=== PATIENT | female | born 1980 | race Caucasian/White ===

== ENCOUNTER 2018-04-24 09:11 | Inpatient (IN) | payer BC, OTHER ==
[2018-04-24] VITALS (39 sets, daily range): BP systolic 112–148; BP diastolic 70–102
[~2018-04-24] VITALS: Ht 152.4 cm; Wt 69.6 kg
[~2018-04-24 09:11] MED LIST: APIDRA100 UNIT/2; TRAMADOL HCL E100 MG
[2018-04-24] MEDS ORDERED: SODIUM CHLORIDE 0.9% 1000ML 1,000 ML IV STA ×2 (09:44)
[2018-04-24] MEDS ORDERED: MORPHINE SULFATE 2 MG/ML SYR IV NR (09:44)
[2018-04-24] MEDS ORDERED: INSULIN REGULAR, HUMAN 100 UNIT/1 ML 3ML VIAL IV NR (09:45)
[2018-04-24] MEDS ORDERED: PROMETHAZINE 25MG/ NS 50ML (IV) IV NR (09:45)
[2018-04-24 09:57] LABS: BASOPHILS # (AUTO) 0.1 (0.0-0.1); BASOPHILS % 0.5 % (0.0-1.0); EOSINOPHILS % 0.1 % (0.0-6.0); HEMATOCRIT 48.6 % (34.2-44.1); HEMOGLOBIN 17.3 g/dL (12.0-16.0); LYMPHOCYTES # (AUTO) 1.9 (1.0-3.2); MEAN CORPUSCULAR HGB CONC 35.6 g/dL (31-35); MEAN CORPUSCULAR VOLUME 81.4 fL (81-99); MONOCYTES # (AUTO) 0.6 (0.2-0.8); MONOCYTES % 3.9 % (4.4-11.3); NEUTROPHILS # (AUTO) 12.9 (2.1-6.9); NEUTROPHILS % 83.1 % (38.7-80.0); PLATELET COUNT 393 x10e3/uL (140-360); RED BLOOD COUNT 5.97 x10e6/uL (3.6-5.1); RED CELL DISTRIBUTION WIDTH 13.8 % (11.7-14.4)
[2018-04-24 10:00] LABS: INR 0.93; PROTHROMBIN TIME 13.3 seconds (11.9-14.5)
[2018-04-24] MEDS ORDERED: PANTOPRAZOLE 40 MG 10ML VIAL IV NR (10:00)
[2018-04-24 10:03] LABS: CLARITY,URINE CLEAR (CLEAR); COLOR,URINE YELLOW (YELLOW); LEUKOCYTE ESTERASE ,URINE NEGATIVE (NEGATIVE); NITRITE,URINE NEGATIVE (NEGATIVE); PROTEIN,URINE DIPSTICK 1+ (NEGATIVE)
[2018-04-24 10:04] LABS: BILIRUBIN,URINE NEGATIVE (NEGATIVE); KETONES,URINE 3+ (NEGATIVE); URINE UROBILINOGEN 0.2 mg/dL (0.2 - 1)
[2018-04-24 10:11] LABS: BACTERIA,URINE FEW /HPF; EPITHELIAL CELLS,URINE FEW /LPF; MUCUS,URINE FEW (RARE); RBC,URINE 0-5 /HPF (0-5); WBC,URINE (MAN) 0-5 /HPF (0-5)
[2018-04-24 10:12] LABS: ALANINE AMINOTRANSFERASE 19 IU/L (0-55); ALBUMIN 4.7 g/dL (3.5-5.0); ALBUMIN/GLOBULIN RATIO 1.5 (0.8-2.0); ALKALINE PHOSPHATASE 87 IU/L (40-150); AMYLASE 51 U/L (25-125); ANION GAP 30.7 mmol/L (8-16); BLOOD UREA NITROGEN 12 mg/dL (7-26); BUN/CREATININE RATIO 13 (6-25); CALCIUM 10.2 mg/dL (8.4-10.2); CARBON DIOXIDE 14 mmol/L (22-29); CHLORIDE 96 mmol/L (98-107); CREATINE KINASE 38 IU/L (29-168); CREATININE, SERUM 0.89 mg/dL (0.57-1.11); EST GLOMERULAR FILTRATION RATE > 60 ML/MIN (60-); LIPASE 26 U/L (8-78); POTASSIUM 3.7 mmol/L (3.5-5.1); SODIUM 137 mmol/L (136-145)
[2018-04-24 10:15] LABS: GLUCOSE 479 mg/dL (74-118)
[2018-04-24 10:30] LABS: ABG HCO3 12 mmol/L (23-28); ABG PCO2 24 mmHg (41-51); ABG PH 7.29 (7.31-7.41); ABG PO2 109 mmHg (80-105)
[2018-04-24] MEDS ORDERED: DEXTROSE 5%/0.45% SOD CHL 1,000 ML IV SCH ×2 (10:42→11:30)
[2018-04-24] MEDS ORDERED: SODIUM CHLORIDE 0.9% 1000ML 1,000 ML IV SCH (10:42)
[2018-04-24] MEDS ORDERED: MAGNESIUM SULF 1GRAM/DEXTROSE 100 ML IV PRN (10:45)
[2018-04-24] MEDS ORDERED: POTASSIUM CHLORIDE 20MEQ/100ML 200 ML IV PRN (10:45)
[2018-04-24] MEDS ORDERED: INSULIN DETEMIR 100 UNIT/ML PEN SQ PRN ×2 (10:45→11:30)
[2018-04-24] MEDS ORDERED: INSULIN REGULAR, HUMAN 3ML VL 100 UNIT in SODIUM CHLORIDE 0.9% 99 ML IV SCH ×2 (10:45)
--- NOTE | 2018-04-24 11:07 | Diagnostic Imaging Report ---
EXAM: XR CHEST 1 VIEW DATE: 04/24/2018 9:44 AM INDICATION: Pain COMPARISON: None FINDINGS: Lines and Tubes: None Heart and Mediastinum: No acute cardiomediastinal findings. Lungs and Pleura: No significant pleural effusion, pneumothorax, or focal consolidation. Bones and Soft Tissues: No acute findings. IMPRESSION: 1. No acute cardiopulmonary findings. Signed by: Dr. Mariano Bryant MD on 04/24/2018 11:04 AM
--- NOTE | 2018-04-24 11:11 | Diagnostic Imaging Report ---
EXAM: CT Abdomen and Pelvis WITH contrast INDICATION: Pain COMPARISON: None. TECHNIQUE: Abdomen and Pelvis was scanned utilizing a multidetector helical scanner after administration of IV contrast. Coronal and sagittal reformations were obtained. IV CONTRAST: 100 mL Isovue-370 COMPLICATIONS: None RADIATION DOSE: Total DLP:657 mGy*cm Estimated effective dose: (DLP x 0.015 x size factor) mSv CTDIvol has been reviewed. It is below the limits set by the Radiation Protocol Committee (RPC). Appropriate CT dose reduction techniques were utilized. FINDINGS: Abdomen: Lung Bases: No acute findings. Solid Organs: Liver, adrenals, kidneys, spleen, and pancreas unremarkable. Upper GI Tract: No small bowel obstructive change. Vascularity: Mild vascular calcifications. No aneurysm. Lymph Nodes: No suspicious adenopathy. Other: None. Pelvis: Bladder: Unremarkable. Other: Small amount of abdominal free fluid statistically leaking/ruptured ovarian cyst given age. Ultrasound could be obtained for further evaluation if indicated. Colon: No acute findings. Appendix not inflamed. Bones: No acute findings. IMPRESSION: 1. No distinct acute abnormality abdomen/pelvis. 2. See above for full details. Signed by: Dr. Mariano Bryant MD on 04/24/2018 11:07 AM
[2018-04-24] MEDS ORDERED: SODIUM CHLORIDE 0.9% 50ML 50 ML ONE ×2 (11:14→20:53)
[2018-04-24] MEDS ORDERED: IOPAMIDOL 370 MG/ML 200 ML INFUS..BTL INJ ONE (11:14)
[2018-04-24] MEDS ORDERED: LISINOPRIL10 MG PO (11:22)
[2018-04-24] MEDS ORDERED: ALPRAZOLAM1 MG PO (11:22)
[2018-04-24] MEDS ORDERED: PROZAC20 MG PO (11:22)
[2018-04-24] MEDS ORDERED: TIZANIDINE HCL4 MG PO (11:22)
[2018-04-24] MEDS ORDERED: AMBIEN10 MG PO (11:22)
[2018-04-24] MEDS ORDERED: METOPROLOL TART50 MG PEG (11:22)
[2018-04-24] MEDS ORDERED: INSULIN REGULAR, HUMAN 3ML VL 100 UNIT in SODIUM CHLORIDE 0.45% 100 ML 100 ML IV SCH ×2 (11:27)
[2018-04-24] MEDS ORDERED: DEXTROSE 50% SYRINGE 50 ML IV PRN ×3 (11:30→15:45)
[2018-04-24] MEDS ORDERED: MORPHINE SULFATE INJ 4 MG/ML INJ IV NR (11:45)
[2018-04-24] MEDS ORDERED: SODIUM CHLORIDE 0.9% 1000ML 2,000 ML IV SCH (11:45)
[2018-04-24] MEDS ORDERED: LORAZEPAM INJ 2 MG/ML VIAL IV NR (11:45)
[2018-04-24] MEDS ORDERED: SODIUM CHLORIDE 0.9% 1000ML 1,000 ML ONE (11:47)
[2018-04-24] MEDS ORDERED: PROMETHAZINE HCL (IM) 25 MG/ML VIAL IV PRN (12:00)
[2018-04-24] MEDS: SODIUM CHLORIDE 0.9% 1000ML 1,000 ML IV SCH ×3 (12:05→18:21)
--- OUTSIDE RECORDS SUMMARY | 2018-04-24 12:14 | XMS REPORT ---
[facility] Address Unknown Phone Unavailable Care Team Providers Care Software Systems Engineer Name Role Phone Hannah FORRESTER Unavailable Unavailable Payers Payer Name Policy Type Policy Number Effective Date Expiration Date Problems This patient has no known problems. Allergies, Adverse Reactions, Alerts Allergy Name Allergy Type Status Severity Reaction(s) Onset Date Inactive Date Treating Clinician Comments No Known Allergies DA Active U 2017-07-21 00:00:00 Medications This patient has no known medications. Results Test Description Test Time Test Comments Text Results Atomic Results Result Comments CT ABDOMEN/PELVIS W 2018-04-24 11:04:00 [id number] [place], [place] [address] Patient Name: JOHANNA ROMERO MR #: [id number] : 1980 Age/Sex: 37/F Req #: [id number] Adm Physician: Ordered by: SHIRA FORRESTER MD Report #: [id number] Location: ER Room/Bed: Procedure: [id number] CT/CT ABDOMEN/PELVIS W Exam Date: 04/24/18 Exam Time: 1035 REPORT STATUS: Signed EXAM: CT Abdomen and Pelvis WITH contrast IND ICATION: Pain COMPARISON: None. TECHNIQUE: Abdomen and Pelvis was scanned utilizing a multidetector helical scanner after administration of IV contrast. Coronal and sagittal reformations were obtained. IV CONTRAST: 100 mL Isovue-370 COMPLICATIONS: None RADIATION DOSE: Total DLP:657 mGy*cm Estimated effective dose: (DLP x 0.015 x size factor) mSv CTDIvol has been reviewed. It is below the limits set by the Radiation Protocol Committee (RPC). Appropriate CT dose reduction techniques were utilized. FINDINGS: Abdomen: Lung Bases: No acute findings. Solid Organs: Liver, adrenals, kidneys, spleen, and pancreas unremarkable. Upper GI Tract: No small bowel obstructive change. Vascularity: Mild vascular calcifications. No aneurysm. Lymph Nodes: No suspicious adenopathy. Other: None. Pelvis: Bladder: Unremarkable. Other: Small amount of abdominal free fluid statistically leaking/ruptured ovarian cyst given age. Ultrasound could be obtained for further evaluation if indicated. Colon: No acute findings. Appendix not inflamed. Bones: No acute findings. IMPRESSION: 1. No distinct acute abnormality abdomen/pelvis. 2. See above for full details. Signed by: Dr. Mariano Bryant MD on 04/24/2018 11:07 AM Dictated By: MARIANO BRYANT MD 110 Transcribed By: MELCHOR on 04/24/18 110 COPY TO: SHIRA FORRESTER MD CHEST SINGLE (PORTABLE) 2018-04-24 11:03:00 [address] [address] Patient Name: JOHANNA ROMERO MR #: [id number] : 1980 Age/Sex: 37/F Req #: [id number] Adm Physician: Ordered by: SHIRA FORRESTER MD Report #: [id number] Location: ER Room/Bed: Procedure: [id number] DX/CHEST SINGLE (PORTABLE) Exam Date: 04/24/18 Exam Time: 1045 REPORT STATUS: Signed EXAM: XR CHEST 1 VIEW DATE: 04/24/2018 9:44 AM INDICATION: Pain COMPARISON: None FINDINGS: Lines and Tubes: None Heart and Mediastinum: No acute cardiomediastinal findings. Lungs and Pleura: No significant pleural effusion, pneumothorax, or focal consolidation. Bones and Soft Tissues: No acute findings. IMPRESSION: 1. No acute cardiopulmonary findings. Signed by: Dr. Mariano Bryant MD on 04/24/2018 11:04 AM Dictated By: MARIANO BRYANT MD 110 Transcribed By: MELCHOR on 04/24/18 1105 COPY TO: SHIRA FORRESTER MD
[2018-04-24] MEDS ORDERED: LABETALOL HCL 5 MG/ML 20ML VIAL IV NR (12:38)
[2018-04-24] MEDS ORDERED: LABETALOL HCL 20 ML ONE (12:42)
[2018-04-24] MEDS ORDERED: LABETALOL HCL 5 MG/ML 20ML VIAL IV PRN (12:45)
[2018-04-24] MEDS ORDERED: ZOLPIDEM TARTRATE 10 MG TAB PO PRN (14:15)
[2018-04-24] MEDS ORDERED: PANTOPRAZOLE 40 MG 10ML VIAL IV ONE (14:45)
[2018-04-24] MEDS ORDERED: INSULIN REGULAR, HUMAN 3ML VL 100 UNIT in SODIUM CHLORIDE 0.45% 100 ML 99 ML IV SCH ×2 (15:39)
[2018-04-24] MEDS ORDERED: INSULIN REGULAR, HUMAN 3ML VL 300 UNIT in SODIUM CHLORIDE 0.45% 100 ML 300 ML IV SCH ×2 (15:39)
[2018-04-24] MEDS: ALPRAZOLAM 1 MG TAB PO SCH ×2 (16:30→21:00)
[2018-04-24 16:42] LABS: FREE T4 (FREE THYROXINE) 1.63 ng/dL (0.9-1.8); THYROID STIMULATING HORMONE 0.515 uIU/mL (0.350-4.940)
--- NOTE | 2018-04-24 16:45 | History and Physical ---
REASON FOR ADMISSION: Ms. Yu is an unfortunate 37-year-old woman with type 1 juvenile-onset diabetes, who presents to the emergency room with a complaint of nausea and vomiting since April 22. HISTORY OF PRESENT ILLNESS: Patient reports she has checked some blood sugars at home, but focus is on the fact that it was 400 to 500 when she presented to the emergency room today. She reports with nausea and repeat vomiting, her chest and oropharynx are uncomfortable. PAST MEDICAL HISTORY: Significant for type 1 juvenile-onset diabetes, insulin-dependent, onset about age 15. She has had hospitalizations at [facility] in November of 2016 for problems of diabetic gastroparesis, vomiting, and she reports she has had a Botox injection into her stomach wall by Dr. Quinteros, which improved this problem. She was also hospitalized at [facility] on July 21, 2017, for nausea and vomiting which she recalls as pneumonia. HOME MEDICATIONS: Include insulin, metoprolol, Zanaflex, atorvastatin, aspirin, Ambien, and tramadol. SOCIAL HISTORY: She does not smoke or drink. REVIEW OF SYSTEMS CARDIAC: Negative. NEURO: She has some diagnosis of neuropathy. PHYSICAL EXAMINATION GENERAL: At this time shows pleasant white woman who is anxious, but otherwise comfortable. HEAD, EYES, EARS, NOSE, AND THROAT: Unremarkable. NECK: No jugular venous distention. THORAX: Heart sounds S1, S2 are equal. Very faint 1/6 systolic murmur. LUNGS: Clear. ABDOMEN: Protuberant. Nontender. Hypoactive bowel sounds. EXTREMITIES: No cyanosis, clubbing, or edema. IMAGING: EKG shows sinus tachycardia at 103, otherwise unremarkable. LABORATORY DATA: Initial laboratory studies show a glucose of 479, BUN 12, creatinine 0.89, hemoglobin 17.3, white count 15.4, bilirubin 2.2. ASSESSMENT 1. Diabetic ketoacidosis. 2. Dehydration. 3. History of diabetic gastroparesis. PLAN: We will hydrate and give intravenous insulin and intravenous Protonix, and we will monitor her closely. Further management based on clinical course. Job#: [id number] LPA cc:DR. ZOILA COTTON
[2018-04-24] MEDS: TIZANIDINE HCL 4 MG TAB PO SCH (18:00)
[2018-04-24] MEDS: D5.45%NS/KCL 20MEQ 1,000 ML IV SCH (18:18)
[2018-04-24] MEDS: METOPROLOL TARTRATE 50 MG TAB PEG SCH (18:20)
[2018-04-24] MEDS: LISINOPRIL 20 MG TAB PO SCH (18:21)
[2018-04-24 20:02] LABS: ANION GAP 14.5 mmol/L (8-16); BLOOD UREA NITROGEN 9 mg/dL (7-26); BUN/CREATININE RATIO 13 (6-25); CALCIUM 8.5 mg/dL (8.4-10.2); CARBON DIOXIDE 19 mmol/L (22-29); CHLORIDE 107 mmol/L (98-107); CREATININE, SERUM 0.67 mg/dL (0.57-1.11); EST GLOMERULAR FILTRATION RATE > 60 ML/MIN (60-); GLUCOSE 222 mg/dL (74-118); MAGNESIUM 1.6 MG/DL (1.3-2.1); POTASSIUM 3.5 mmol/L (3.5-5.1); SODIUM 137 mmol/L (136-145)
[2018-04-24 20:10] LABS: CREATINE KINASE MB 1.9 ng/mL (0-5.0)
[2018-04-24] MEDS: MORPHINE SULFATE 2 MG/ML SYR IV PRN (20:55)
[2018-04-25] VITALS (43 sets, daily range): BP systolic 82–184; BP diastolic 40–125
[2018-04-25] MEDS: D5.45%NS/KCL 20MEQ 1,000 ML IV SCH ×4 (00:01→21:10)
--- NOTE | 2018-04-25 01:02 | Consultation ---
DATE OF CONSULTATION: April 24, 2018 ENDOCRINE CONSULTATION PATIENT OF: Dr. Tobi Arizmendi. Thank you very much for referring this patient. HISTORY OF PRESENT ILLNESS: This is a 37-year-old white female who is known to me from her previous hospital admissions. Patient is a known case of diabetes mellitus since she was age 13. She has multiple complications from diabetes including severe diabetic sensorimotor neuropathy and gastroparesis. This time, the patient came to the hospital with history of nausea, vomiting, and abdominal pain. On further evaluation, blood sugar was 479, anion gap was 30.7 and the CO2 was 14. Patient was admitted the hospital for further evaluation and management of diabetic ketoacidosis. Patient was on insulin pump in the past. She is presently on 16 of Levemir at bedtime and Apidra about 8 to 10 with each meal depending upon the blood sugars. She also has a history of gastroparesis and hypertension. Her other routine medications include labetalol, metoprolol, and lisinopril 20 mg once daily. PHYSICAL EXAMINATION GENERAL: Today, the patient is alert, awake, and a little bit apprehensive. She looks slightly dehydrated. VITAL SIGNS: Heart rate is 100. Blood pressure is 130/80. HEENT: Examination essentially unremarkable. NECK: Thyroid is palpable. Clinically, she is near euthyroid. CHEST: Bilateral vesicular breathing. She has mild bronchospasm. CARDIOVASCULAR: First and second heart sounds. There is no third or fourth heart sound. Ejection sound grade 2/6. EXTREMITIES: Patient has evidence of diabetic sensory neuropathy in both lower extremities. CLINICAL IMPRESSION 1. Diabetes mellitus type 1. 2. Diabetic ketoacidosis. 3. History of gastroparesis. 4. Hypertension. PLAN: At this time is to start her on IV fluids, insulin drip, and monitor her blood sugars closely. We will also do a thyroid function test and a hemoglobin A1c. Thanks for referring this patient. I will be following this patient with you. Job#: [id number] MONAE
[2018-04-25 04:29] LABS: BASOPHILS % 0.4 % (0.0-1.0); EOSINOPHILS # (AUTO) 0.1 (0.0-0.4); EOSINOPHILS % 0.8 % (0.0-6.0); HEMATOCRIT 39.3 % (34.2-44.1); HEMOGLOBIN 13.5 g/dL (12.0-16.0); LYMPHOCYTES % 31.2 % (18.0-39.1); MEAN CORPUSCULAR HEMOGLOBIN 28.7 pg (28-32); MEAN CORPUSCULAR HGB CONC 34.4 g/dL (31-35); MEAN CORPUSCULAR VOLUME 83.4 fL (81-99); MONOCYTES # (AUTO) 0.9 (0.2-0.8); MONOCYTES % 9.6 % (4.4-11.3); NEUTROPHILS # (AUTO) 5.6 (2.1-6.9); NEUTROPHILS % 57.7 % (38.7-80.0); PLATELET COUNT 228 x10e3/uL (140-360); RED BLOOD COUNT 4.71 x10e6/uL (3.6-5.1); RED CELL DISTRIBUTION WIDTH 14.3 % (11.7-14.4)
[2018-04-25 04:44] LABS: ANION GAP 13.3 mmol/L (8-16); BLOOD UREA NITROGEN 6 mg/dL (7-26); BUN/CREATININE RATIO 10 (6-25); CALCIUM 8.4 mg/dL (8.4-10.2); CARBON DIOXIDE 20 mmol/L (22-29); CHLORIDE 108 mmol/L (98-107); CREATININE, SERUM 0.62 mg/dL (0.57-1.11); EST GLOMERULAR FILTRATION RATE > 60 ML/MIN (60-); GLUCOSE 162 mg/dL (74-118); MAGNESIUM 1.8 MG/DL (1.3-2.1); POTASSIUM 3.3 mmol/L (3.5-5.1); SODIUM 138 mmol/L (136-145)
[2018-04-25 05:19] LABS: CREATINE KINASE MB 1.1 ng/mL (0-5.0)
[2018-04-25] MEDS: MORPHINE SULFATE 2 MG/ML SYR IV PRN ×4 (05:55→21:43)
[2018-04-25] MEDS: TIZANIDINE HCL 4 MG TAB PO SCH ×4 (06:00→17:37)
[2018-04-25] MEDS: LISINOPRIL 20 MG TAB PO SCH ×2 (08:03→17:00)
[2018-04-25] MEDS: METOPROLOL TARTRATE 50 MG TAB PEG SCH ×2 (08:03→17:00)
[2018-04-25] MEDS: FLUOXETINE HCL 20 MG CAP PO SCH (08:03)
[2018-04-25] MEDS: ALPRAZOLAM 1 MG TAB PO SCH ×3 (08:04→21:10)
[2018-04-25] MEDS: INSULIN LISPRO 100 UNIT/1 ML 3ML VIAL SQ SCH ×3 (15:46→21:30)
[2018-04-25] MEDS ORDERED: INSULIN DETEMIR 100 UNIT/ML PEN SQ SCH (21:00)
[2018-04-25] MEDS: ONDANSETRON HCL INJ 2 MG/ML VIAL IV PRN (21:43)
[2018-04-26 00:32] VITALS: BP 117/61
[2018-04-26 05:31] VITALS: BP 126/66
[2018-04-26] MEDS: ONDANSETRON HCL INJ 2 MG/ML VIAL IV PRN (06:25)
[2018-04-26] MEDS: MORPHINE SULFATE 2 MG/ML SYR IV PRN ×2 (06:25→10:14)
[2018-04-26] MEDS: TIZANIDINE HCL 4 MG TAB PO SCH ×3 (06:25→12:00)
[2018-04-26 08:00] VITALS: BP 126/70
[2018-04-26] MEDS: INSULIN LISPRO 100 UNIT/1 ML 3ML VIAL SQ SCH ×6 (08:00→16:41)
[2018-04-26] MEDS: LISINOPRIL 20 MG TAB PO SCH (09:00)
[2018-04-26] MEDS: ALPRAZOLAM 1 MG TAB PO SCH ×2 (09:00→16:00)
[2018-04-26] MEDS: METOPROLOL TARTRATE 50 MG TAB PEG SCH (09:00)
[2018-04-26] MEDS: FLUOXETINE HCL 20 MG CAP PO SCH (09:00)
[2018-04-26 12:00] VITALS: BP 130/91
[2018-04-26] MEDS ORDERED: LANTUS 3ML100 UNITS/ SQ (16:27)
[2018-04-26] MEDS ORDERED: HUMALOG100 UNIT/1 SQ (16:28)
--- NOTE | 2018-04-28 10:17 | Discharge Summary ---
Ms. Yu is an unfortunate 37-year-old woman with type 1 juvenile onset diabetes, who presented to the emergency room on April 24, 2018, with the complaint of nausea and vomiting since April 22, 2018. HOSPITAL COURSE: She reported she had check home blood sugars and found them in the 400 to 500 range, but attempted to take fluids and was unable to do so. On hospital presentation, her blood sugar was in the 400s. She was started on IV fluids and insulin drip. She was seen by Dr. Pink. She was known that she had a previous diagnosis of diabetic gastroparesis, but had been treated with Botox injections into her stomach by Dr. Quinteros. She had no evidence of any active infection. Her blood sugars gradually improved. She became more comfortable, and was able to take an advanced diabetic diet. On April 25, 2018, her glucoses came down to the 200s, and by April 26, 2018, had blood sugars of 117 and 208. She was discharged to home with insulin regimen designed by Dr. Pink, and recommended to follow up with him in the office and with Dr. Quinteros to review her stomach status. She will follow up Dr. Pierce on a regular basis. DISCHARGE DIAGNOSES 1. Diabetic ketoacidosis. 2. Type 1 juvenile onset diabetes. 3. History of diabetic gastroparesis. HELEN HICKEY MD Job#: [id number] RI cc:DO DEMETRIO FLORIAN MD
== END 2018-04-26 16:47 | disposition home or self-care (01) | DRG 639 ==
LOC: ER 09:11 → ERHOLD 12:02 → ICU 13:10 → MED/SURG3 04-25 18:30
PROVIDERS: ADMIT Internal Medicine Cardiovascular Disease; ATTEND Internal Medicine Cardiovascular Disease
DX: E10.10 Type 1 diabetes mellitus with ketoacidosis without coma (principal); E10.43 Type 1 diabetes mellitus with diabetic autonomic (poly)neuropathy; K31.84 Gastroparesis; I10 Essential (primary) hypertension; F41.9 Anxiety disorder, unspecified; E86.0 Dehydration
CPT/HCPCS: 36415; 36600; 71045; 74177; 80048; 80053; 81001; 82150; 82550; 82553; 82805; 82948; 83036; 83690; 83735; 84439; 84443; 84484; 85025; 85610; 85730; 87040; 87086; 93005; 96372; 96375; 99284; J2060; J2270; J2405; J2550; J7030; Q9967

== ENCOUNTER 2018-09-20 19:44 | Emergency (ER) | payer SELFPAY ==
[~2018-09-20] VITALS: Ht 152.4 cm; Wt 69.4 kg
[~2018-09-20 19:44] MED LIST changes: +ALPRAZOLAM1 MG PO; +AMBIEN10 MG PO; +HUMALOG100 UNIT/1 SQ; +LANTUS 3ML100 UNITS/ SQ; +LISINOPRIL10 MG PO; +METOPROLOL TART50 MG PEG; +PROZAC20 MG PO; +TIZANIDINE HCL4 MG PO
[2018-09-20] MEDS ORDERED: INSULIN REGULAR, HUMAN 100 UNIT/1 ML 3ML VIAL IV ONE (20:00)
[2018-09-20] MEDS ORDERED: METOCLOPRAMIDE HCL 10 MG/2ML VIAL IV ONE (20:00)
[2018-09-20] MEDS ORDERED: DIPHENHYDRAMINE HCL INJ 50 MG/ML VIAL IV ONE (20:00)
[2018-09-20 21:21] LABS: BASOPHILS # (AUTO) 0.1 (0.0-0.1); BASOPHILS % 0.7 % (0.0-1.0); EOSINOPHILS % 0.3 % (0.0-6.0); HEMOGLOBIN 17.4 g/dL (12.0-16.0); LYMPHOCYTES # (AUTO) 2.2 (1.0-3.2); LYMPHOCYTES % 16.2 % (18.0-39.1); MEAN CORPUSCULAR HEMOGLOBIN 28.1 pg (28-32); MEAN CORPUSCULAR HGB CONC 34.8 g/dL (31-35); MEAN CORPUSCULAR VOLUME 80.6 fL (81-99); MONOCYTES # (AUTO) 0.8 (0.2-0.8); NEUTROPHILS # (AUTO) 10.2 (2.1-6.9); NEUTROPHILS % 76.3 % (38.7-80.0); PLATELET COUNT 468 x10e3/uL (140-360); RED CELL DISTRIBUTION WIDTH 14.5 % (11.7-14.4)
[2018-09-20 21:47] LABS: ALANINE AMINOTRANSFERASE 17 IU/L (0-55); ALBUMIN 4.2 g/dL (3.5-5.0); ALKALINE PHOSPHATASE 93 IU/L (40-150); AMYLASE 39 U/L (25-125); ANION GAP 26.2 mmol/L (8-16); BLOOD UREA NITROGEN 21 mg/dL (7-26); BUN/CREATININE RATIO 22 (6-25); CARBON DIOXIDE 17 mmol/L (22-29); CHLORIDE 94 mmol/L (98-107); CREATININE, SERUM 0.95 mg/dL (0.57-1.11); EST GLOMERULAR FILTRATION RATE > 60 ML/MIN (60-); LIPASE 20 U/L (8-78); POTASSIUM 4.2 mmol/L (3.5-5.1); SODIUM 133 mmol/L (136-145)
[2018-09-20 21:53] LABS: GLUCOSE 404 mg/dL (74-118)
[2018-09-20] MEDS ORDERED: PROMETHAZINE HCL (IM) 25 MG/ML VIAL ONE (22:44)
[2018-09-20] MEDS ORDERED: SODIUM CHLORIDE 0.9% 1000ML 1,000 ML IV STA (22:51)
[2018-09-20] MEDS ORDERED: PROMETHAZINE 25MG/ NS 50ML (IV) IV ONE (23:00)
[2018-09-20] MEDS ORDERED: SODIUM CHLORIDE 0.9% 1000ML 1,000 ML IV SCH (23:15)
[2018-09-20] MEDS ORDERED: HALOPERIDOL LACTATE 5 MG/ML VIAL IM ONE (23:30)
[2018-09-20] MEDS ORDERED: METOPROLOL TARTRATE INJ 1 MG/ML VIAL IV ONE ×2 (23:30→23:45)
[2018-09-21 00:20] LABS: AMPHETAMINES SCREEN,URINE NEGATIVE (NEGATIVE); BENZODIAZEPINES SCREEN,URINE POSITIVE (NEGATIVE); PHENCYCLIDINE SCREEN,URINE NEGATIVE (NEGATIVE); PREGNANCY TEST, URINE NEGATIVE (NEGATIVE)
[2018-09-21 00:21] LABS: CLARITY,URINE CLOUDY (CLEAR); COLOR,URINE YELLOW (YELLOW); LEUKOCYTE ESTERASE ,URINE TRACE (NEGATIVE); NITRITE,URINE NEGATIVE (NEGATIVE)
[2018-09-21 00:22] LABS: BILIRUBIN,URINE 2+ (NEGATIVE); KETONES,URINE 3+ (NEGATIVE); PROTEIN,URINE DIPSTICK 1+ (NEGATIVE); URINE UROBILINOGEN 0.2 mg/dL (0.2 - 1)
[2018-09-21 00:31] LABS: BACTERIA,URINE MANY /HPF; EPITHELIAL CELLS,URINE MODERATE /LPF; WBC,URINE (MAN) 21-50 /HPF (0-5)
--- NOTE | 2018-09-21 00:55 | NUR ---
ns 2l bolus infused, saline locked iv. awake alert skin w/d resp nonlab. nad noted.
[2018-09-21 02:05] LABS: ANION GAP 17.5 mmol/L (8-16); BLOOD UREA NITROGEN 17 mg/dL (7-26); BUN/CREATININE RATIO 24 (6-25); CARBON DIOXIDE 17 mmol/L (22-29); CHLORIDE 102 mmol/L (98-107); CREATININE, SERUM 0.71 mg/dL (0.57-1.11); EST GLOMERULAR FILTRATION RATE > 60 ML/MIN (60-); GLUCOSE 256 mg/dL (74-118); POTASSIUM 3.5 mmol/L (3.5-5.1); SODIUM 133 mmol/L (136-145)
[2018-09-21 02:07] LABS: CALCIUM 8.3 mg/dL (8.4-10.2)
[2018-09-21] MEDS ORDERED: ZOFRAN4 MG SL (02:39)
== END 2018-09-21 03:06 | disposition home or self-care (01) ==
LOC: EDBD 19:44 → ER 19:44
DX: R11.2 Nausea with vomiting, unspecified (principal); K29.00 Acute gastritis without bleeding; E11.43 Type 2 diabetes mellitus with diabetic autonomic (poly)neuropathy
CPT/HCPCS: 36415; 80048; 80053; 80307; 81001; 81025; 82150; 82948; 83690; 85025; 99284; J1200; J1630; J1817; J2550; J7030

== ENCOUNTER 2024-01-03 15:56 | Emergency (ER) | payer OTHER ==
[~2024-01-03] VITALS: Ht 157.5 cm; Wt 74.4 kg
[~2024-01-03 15:56] MED LIST changes: +ZOFRAN4 MG SL
[2024-01-03 16:00] VITALS: TEMP 98.4
[2024-01-03] MEDS: SODIUM CHLORIDE 0.9% 1000ML 1,000 ML IV SCH (16:35)
[2024-01-03 16:36] LABS: BASOPHILS % 0.5 % (0.0-1.0); EOSINOPHILS # (AUTO) 0.2 (0.0-0.4); EOSINOPHILS % 3.9 % (0.0-6.0); HEMATOCRIT 33.7 % (34.2-44.1); LYMPHOCYTES # (AUTO) 1.6 (1.0-3.2); LYMPHOCYTES % 28.2 % (18.0-39.1); MEAN CORPUSCULAR HEMOGLOBIN 27.6 pg (28-32); MEAN CORPUSCULAR HGB CONC 32.6 g/dL (31-35); MEAN CORPUSCULAR VOLUME 84.5 fL (81-99); MONOCYTES # (AUTO) 0.3 (0.2-0.8); MONOCYTES % 5.5 % (4.4-11.3); NEUTROPHILS # (AUTO) 3.4 (2.1-6.9); NEUTROPHILS % 61.5 % (38.7-80.0); PLATELET COUNT 170 x10e3/uL (140-360); RED BLOOD COUNT 3.99 x10e6/uL (3.6-5.1); RED CELL DISTRIBUTION WIDTH 14.8 % (11.7-14.4)
[2024-01-03 16:54] LABS: ALBUMIN 3.5 g/dL (3.5-5.0); ALBUMIN/GLOBULIN RATIO 1.3 (0.8-2.0); ANION GAP 13.9 mmol/L (8-16); CALCIUM 8.9 mg/dL (8.4-10.2); CREATININE, SERUM 0.87 mg/dL (0.57-1.11); POTASSIUM 3.9 mmol/L (3.5-5.1); TOTAL PROTEIN 6.1 g/dL (6.5-8.1)
[2024-01-03 17:11] LABS: BILIRUBIN,TOTAL 0.6 mg/dL (0.2-1.2)
[2024-01-03] MEDS: KETOROLAC TROMETHAMINE 30 MG/ML VIAL IV STA (17:42)
[2024-01-03] MEDS: SODIUM CHLORIDE 0.9% 1000ML 1,000 ML IV ONE (17:43)
[2024-01-03 17:44] VITALS: PULSE 81; RESP 18
[2024-01-03] MEDS: INSULIN REGULAR, HUMAN 100 UNIT/1 ML SQ ONE (18:22)
[2024-01-03 19:20] VITALS: BP 121/75; PULSE 74; RESP 18; TEMP 98.2; O2SAT 99
== END 2024-01-03 19:05 | disposition home or self-care (01) ==
LOC: ER 16:20
DX: F07.81 Postconcussional syndrome (principal); Y04.0XXA Assault by unarmed brawl or fight, initial encounter; E11.65 Type 2 diabetes mellitus with hyperglycemia; K21.9 Gastro-esophageal reflux disease without esophagitis; F41.9 Anxiety disorder, unspecified; F32.A Depression, unspecified; F17.210 Nicotine dependence, cigarettes, uncomplicated
CPT/HCPCS: 36415; 70450; 80053; 82948; 85025; 99284; J1885; J7030